=== PATIENT | male | born 1960 | race African-American/Black ===

== ENCOUNTER 2020-04-20 17:59 | Emergency (ER) | payer OTHER ==
[~2020-04-20] VITALS: Ht 170.2 cm; Wt 87.0 kg
[2020-04-20 18:06] VITALS: BP 146/101
[2020-04-20] MEDS ORDERED: ASPI-1497 PO (18:10)
[2020-04-20] MEDS ORDERED: DIPHENHYDRAMINE 25MG CAPSULE PO ONE (20:30)
[2020-04-20] MEDS ORDERED: CEPHALEXIN 250MG CAPSULE PO ONE (20:30)
[2020-04-20] MEDS ORDERED: IBUPROFEN 600MG TABLET PO ONE (20:30)
[2020-04-20] MEDS ORDERED: SULFAMETHOXAZOLE/TRIMETHOPRIM 800/160MG TABLET PO ONE (20:30)
== END 2020-04-20 21:25 | disposition home or self-care (01) ==
LOC: ER 18:14
DX: L03.113 Cellulitis of right upper limb (principal); I10 Essential (primary) hypertension; E78.00 Pure hypercholesterolemia, unspecified; F12.10 Cannabis abuse, uncomplicated; Z79.82 Long term (current) use of aspirin
CPT/HCPCS: 73130; 99284; Q0163